=== PATIENT | female | born 1975 | race African-American/Black ===

== ENCOUNTER 2022-09-11 20:26 | Emergency (ER) | payer MEDICAID ==
[~2022-09-11] VITALS: Ht 154.9 cm; Wt 76.8 kg
[2022-09-11 21:03] LABS: Hemoglobin 7.8 g/dL (12.2-16.2)
[2022-09-11 21:05] LABS: Hematocrit 25.5 % (36.0-46.0); Mean Corpuscular Hgb Conc. 30.5 g/dL (32.0-36.0); Mean Corpuscular Volume 52.3 fL (80.0-100.0); Red Blood Cells 4.87 10^6/uL (4.0-5.20)
[2022-09-11 21:14] LABS: Urine Bacteria FEW /hpf (None Seen); Urine Blood Negative /uL (Negative); Urine Specific Gravity 1.011 (1.001-1.035); Urine WBC 1 /hpf (0 - 5)
[2022-09-11 21:22] LABS: Albumin 3.5 g/dL (3.4-5.0); Calcium 8.9 mg/dL (8.5-10.1); Magnesium 2.2 mg/dL (1.6-2.6); Potassium 3.7 mmol/L (3.5-5.1)
[2022-09-11 21:25] LABS: BUN/Creatinine Ratio 9.8 (10.0-20.0); Bilirubin, Total 0.3 mg/dL (0.2-1.0); Total Protein 7.9 g/dL (6.4-8.2)
[2022-09-11 21:53] LABS: Basophils % (manual) 0 (0.0-2.0); Blast Cells 0; Metamyelocytes % 0; Myelocytes % 0; Promyelocytes % 0; Reactive Lymphocytes 0
[2022-09-11 22:16] LABS: Band Neutrophils % (manual) 3; Eosinophils % (manual) 3 (0-7); Lymphocytes % (manual) 8 (10.0-50.0); Monocytes % (manual) 3 (0-12)
[2022-09-11] MEDS ORDERED: diphenhdrAMINE HCL 50 MG/1 ML VL IM ONE (23:15)
[2022-09-11] MEDS ORDERED: METOCLOPRAMIDE HCL 5MG/ml INJ 2ml VIAL IM ONE (23:15)
[2022-09-11] MEDS ORDERED: KETOROLAC TROMETH 30 MG/ML 1ML VIAL IM ONE (23:15)
[2022-09-12] MEDS ORDERED: IOHEXOL 350 MG/ML 100ML IJ ONE (00:11)
[2022-09-12] MEDS ORDERED: SODIUM CHLORIDE 0.9% 1,000 ML IV ONE (00:15)
[2022-09-12] MEDS ORDERED: FERR1TAB36 PO (01:55)
[2022-09-12 02:20] VITALS: BP 128/75
== END 2022-09-12 02:25 | disposition home or self-care (01) ==
LOC: ER 20:26
DX: G43.909 Migraine, unspecified, not intractable, without status migrainosus (principal); D64.9 Anemia, unspecified; I10 Essential (primary) hypertension; R55 Syncope and collapse; R06.02 Shortness of breath; Z32.02 Encounter for pregnancy test, result negative
CPT/HCPCS: 36415; 70450; 70496; 71045; 80053; 81001; 81025; 83735; 83880; 84484; 85007; 85027; 93005; 96360; 96372; 99285; J1200; J1885; J2765; J7030; Q9967; 96361

== ENCOUNTER 2022-11-12 14:20 | Emergency (ER) | payer MEDICAID ==
[~2022-11-12] VITALS: Ht 154.9 cm; Wt 83.6 kg
[~2022-11-12 14:20] MED LIST: FERR1TAB36 PO
[2022-11-12] MEDS ORDERED: IPRATROPIUM BROM 0.5 MG/2.5ML INH SOL NEB ONE ×2 (14:45→15:30)
[2022-11-12] MEDS ORDERED: ALBUTEROL SULF 2.5 MG/0.5ML(0.5%) NEB SOLN NEB ONE ×2 (14:45→15:30)
[2022-11-12 14:51] LABS: Basophils # (auto) 0.1 10 ^3/uL (0-0.2)
[2022-11-12 14:52] LABS: Basophils % (auto) 0.4 % (0.0-2.0); Eosinophils % (auto) 12.7 % (0.0-7.0); Hematocrit 30.1 % (36.0-46.0); Lymphocytes % (auto) 18.9 % (10.0-50.0); Mean Corpuscular Hemoglobin 17.3 pg (28.0-32.0); Mean Corpuscular Hgb Conc. 30.1 g/dL (32.0-36.0); Mean Corpuscular Volume 57.7 fL (80.0-100.0); Monocytes # (auto) 0.7 10 ^3/uL (0-1.3); Monocytes % (auto) 4.4 % (0.0-12.0); Neutrophils # (auto) 10.2 10 ^3/uL (1.6-8.6); Neutrophils % (auto) 63.6 % (37.0-80.0); Red Blood Cells 5.21 10^6/uL (4.0-5.20)
[2022-11-12 14:56] LABS: Red Cell Distribution Width 24.5 % (11.8-14.3)
[2022-11-12 15:06] LABS: Albumin 3.5 g/dL (3.4-5.0); Calcium 8.9 mg/dL (8.5-10.1); Potassium 4.4 mmol/L (3.5-5.1)
[2022-11-12 15:10] LABS: BUN/Creatinine Ratio 16.7 (10.0-20.0); Bilirubin, Total 0.2 mg/dL (0.2-1.0); Total Protein 7.2 g/dL (6.4-8.2)
[2022-11-12] MEDS ORDERED: cefTRIAXone SOD 1,000 MG VL IM ONE (15:30)
[2022-11-12] MEDS ORDERED: methylPREDNISolone SOD SUCC 125 MG/2 ML VL IM ONE (15:30)
[2022-11-12] MEDS ORDERED: PROMETHAZINE W/CODEINE 5 ML ORAL SYRUP PO ONE (15:45)
[2022-11-12 17:00] VITALS: BP 125/80
[2022-11-12] MEDS ORDERED: ALB5IS NEB (17:07)
[2022-11-12] MEDS ORDERED: AZIT500T66 PO (17:07)
[2022-11-12] MEDS ORDERED: PROM1SOL4 PO (17:07)
[2022-11-12] MEDS ORDERED: PRED20TA2 PO (17:07)
== END 2022-11-12 17:19 | disposition home or self-care (01) ==
LOC: ER 14:20
DX: J45.901 Unspecified asthma with (acute) exacerbation (principal); J03.90 Acute tonsillitis, unspecified
CPT/HCPCS: 36415; 71045; 80053; 84484; 85025; 93005; 94640; 96372; 99285; J0696; J2930; J7644

== ENCOUNTER 2023-03-29 07:37 | Emergency (ER) | payer MEDICAID ==
[~2023-03-29] VITALS: Ht 154.9 cm; Wt 83.5 kg
[~2023-03-29 07:37] MED LIST changes: +ALB5IS NEB; +AZIT500T66 PO; +PRED20TA2 PO; +PROM1SOL4 PO
[2023-03-29 08:34] LABS: Alanine Aminotransferase 10 U/L (7-40); Albumin 4.4 g/dL (3.2-4.8); Alkaline Phosphatase 68 U/L (46-116); Anion Gap 7 (5-15); Aspartate Aminotransferase 11 U/L (13-40); BUN/Creatinine Ratio 10.5 (10.0-20.0); Blood Urea Nitrogen 8 mg/dL (9-23); Calcium 8.6 mg/dL (8.5-10.1); Carbon Dioxide 23 mmol/L (20-30); Chloride 111 mmol/L (98-107); Glucose 93 mg/dL (74-106); Potassium 3.6 mmol/L (3.5-5.1); Sodium 141 mmol/L (136-145)
[2023-03-29 08:35] LABS: Bilirubin, Total 0.3 mg/dL (0.2-1.0); Total Protein 7.5 g/dL (5.7-8.2)
[2023-03-29 09:03] LABS: Lipase 43 U/L (12-53)
[2023-03-29 09:20] LABS: Basophils # (auto) 0.1 10 ^3/uL (0-0.2); Basophils % (auto) 1.5 % (0.0-2.0); Eosinophils # (auto) 0.1 10 ^3/uL (0-0.8); Eosinophils % (auto) 0.6 % (0.0-7.0); Hematocrit 31.5 % (36.0-46.0); Hemoglobin 9.3 g/dL (12.2-16.2); Lymphocytes # (auto) 1.8 10 ^3/uL (0.4-5.4); Mean Corpuscular Hemoglobin 16.9 pg (28.0-32.0); Mean Corpuscular Hgb Conc. 29.5 g/dL (32.0-36.0); Mean Corpuscular Volume 57.3 fL (80.0-100.0); Monocytes # (auto) 0.4 10 ^3/uL (0-1.3); Monocytes % (auto) 4.4 % (0.0-12.0); Neutrophils # (auto) 6.6 10 ^3/uL (1.6-8.6); Neutrophils % (auto) 73.5 % (37.0-80.0)
[2023-03-29 09:21] LABS: Red Cell Distribution Width 20.4 % (11.8-14.3)
[2023-03-29 09:58] LABS: Urine Bacteria FEW /hpf (None Seen); Urine Blood 3+ /uL (Negative); Urine Clarity HAZY (Clear); Urine Color Yellow (Yellow); Urine Mucus FEW (None Seen); Urine Protein, UAD TRACE (Negative); Urine Specific Gravity 1.027 (1.001-1.035); Urine Urobilinogen Normal (Negative); Urine WBC 6 /hpf (0 - 5); Urine pH 5.5 (5.0-8.0)
[2023-03-29] MEDS ORDERED: cefTRIAXone SOD 1,000 MG VL IM ONE (10:30)
[2023-03-29 11:20] LABS: Platelet Estimate Increased
[2023-03-29 11:21] LABS: Anisocytosis Slight; Hypochromia Marked
[2023-03-29 12:48] VITALS: BP 125/60; PULSE 72; RESP 18; TEMP 98.2; O2SAT 100
[2023-03-29] MEDS ORDERED: DONNATAL 5ml ORAL Elix (BELLADONNA ALK-PHENOBARB) PO ONE (13:00)
[2023-03-29] MEDS ORDERED: MAALOX PLUS or MAALOX 30 ML PO ONE (13:00)
[2023-03-29] MEDS ORDERED: LIDOCAINE VISCOUS 2% 15ML UD PO ONE (13:00)
[2023-03-29] MEDS ORDERED: NITR-87 PO (13:05)
[2023-03-29] MEDS ORDERED: METR-344 PO (13:05)
[2023-03-29] MEDS ORDERED: PANT40TA2 PO (13:05)
== END 2023-03-29 13:07 | disposition home or self-care (01) ==
LOC: ER 07:37
DX: K29.70 Gastritis, unspecified, without bleeding (principal); J45.909 Unspecified asthma, uncomplicated
CPT/HCPCS: 36415; 74176; 80053; 81001; 83690; 85025; 96372; 99285; J0696

== ENCOUNTER 2023-09-17 20:56 | Emergency (ER) | payer MEDICAID ==
[~2023-09-17] VITALS: Ht 154.9 cm; Wt 84.0 kg
[~2023-09-17 20:56] MED LIST changes: +METR-344 PO; +NITR-87 PO; +PANT40TA2 PO
[2023-09-17] MEDS: MORPHINE SULFATE 4 MG/ML SYR/VIAL IM ONE (23:29)
[2023-09-17 23:44] LABS: Basophils # (auto) 0.1 10 ^3/uL (0-0.2); Eosinophils # (auto) 0.1 10 ^3/uL (0-0.8); Monocytes # (auto) 0.5 10 ^3/uL (0-1.3); Neutrophils # (auto) 11.6 10 ^3/uL (1.6-8.6)
[2023-09-17 23:46] LABS: Basophils % (auto) 0.7 % (0.0-2.0); Eosinophils % (auto) 0.5 % (0.0-7.0); Hematocrit 30.1 % (36.0-46.0); Hemoglobin 8.8 g/dL (12.2-16.2); Lymphocytes # (auto) 1.5 10 ^3/uL (0.4-5.4); Lymphocytes % (auto) 10.6 % (10.0-50.0); Mean Corpuscular Hemoglobin 16.7 pg (28.0-32.0); Mean Corpuscular Hgb Conc. 29.4 g/dL (32.0-36.0); Mean Corpuscular Volume 56.9 fL (80.0-100.0); Monocytes % (auto) 3.9 % (0.0-12.0); Neutrophils % (auto) 84.3 % (37.0-80.0); Red Blood Cells 5.29 10^6/uL (4.0-5.20); White Blood Cell 13.7 10^3/uL (4.4-10.8)
[2023-09-17 23:53] LABS: Red Cell Distribution Width 20.3 % (11.8-14.3)
[2023-09-18] LABS: Alanine Aminotransferase 12 U/L (7-40); Albumin 4.4 g/dL (3.2-4.8); Alkaline Phosphatase 68 U/L (46-116); Anion Gap 11 (5-15); Aspartate Aminotransferase 14 U/L (13-40); BUN/Creatinine Ratio 16.7 (10.0-20.0); Bilirubin, Total 0.4 mg/dL (0.2-1.0); Blood Urea Nitrogen 13 mg/dL (9-23); Calcium 9.4 mg/dL (8.5-10.1); Carbon Dioxide 22 mmol/L (20-30); Chloride 110 mmol/L (98-107); Glucose 87 mg/dL (74-106); Potassium 3.3 mmol/L (3.5-5.1); Sodium 143 mmol/L (136-145); Total Protein 7.3 g/dL (5.7-8.2)
[2023-09-18 00:24] LABS: Lipase 33 U/L (12-53)
[2023-09-18 00:33] LABS: Anisocytosis Slight; Hypochromia Marked; Large Platelets FEW; Ovalocytes FEW; Platelet Estimate Increased
[2023-09-18 00:34] LABS: Target Cell FEW
[2023-09-18] MEDS ORDERED: DICY10CA PO (04:35)
[2023-09-18 04:45] VITALS: BP 126/75; PULSE 100; RESP 20; TEMP 98.6; O2SAT 98
== END 2023-09-18 04:46 | disposition home or self-care (01) ==
LOC: ER 20:56
DX: K52.9 Noninfective gastroenteritis and colitis, unspecified (principal); R10.2 Pelvic and perineal pain
CPT/HCPCS: 36415; 74176; 80053; 83690; 84702; 85025; 96372; 99285; J2270